=== PATIENT | female | born 1965 | race Caucasian/White ===

== ENCOUNTER 2024-04-10 14:14 | Observation (INO) ==
--- NOTE | 2024-04-10 14:36 | Emergency Department Note ---
Impression & Plan Recurrent falls, Fall down stairs, Slurred speech, Ambulatory dysfunction, Back pain, Incidental pulmonary nodule ED Provider Note HISTORY OF PRESENT ILLNESS: Patient is a 58-year-old female presenting with slurred speech and gait instability after a fall. Patient reports she fell down 13 stairs on a spiral Staircase 2 days ago. Denies loss of consciousness at that time. Reports that she did strike her head, but she did not want to be evaluated. She states that 3 weeks ago she was loading a bag into the back of her car and also hit her head on the trailer and lost consciousness. However, she reports she did not want to be evaluated at that time. She denies any anticoagulation use. Reports over the last 2 weeks she has been having significant gait instability and difficulties getting around. Reports she has had balance issues and feels very unsteady on her feet. Currently complaining of head and neck pain. She reports double and blurry vision. Denies any numbness or tingling or weakness in her extremities. Significant other reports that her speech is significantly slurred, which is abnormal for her. ROS: as above PHYSICAL EXAM: Constitutional: Patient appears in no acute distress. HENT: Head: Normocephalic and atraumatic. Eyes: EOMI, PERRL Mouth/Throat: Mucous membranes moist. Neck: Trachea midline. Neck supple. No midline cervical spine tenderness to palpation. Cardiovascular: RRR, No murmurs, rubs or gallops. Intact distal pulses. Pulmonary/Chest: No respiratory distress. Breath sounds clear and equal bilaterally. No wheezes or rales. No chest wall tenderness to palpation. Abdominal: Abdomen soft, no tenderness, rebound or guarding. Back: No paraspinal tenderness, no CVA tenderness. Patient has lower thoracic and upper lumbar midline tenderness to palpation. No obvious step-offs or deformities. Musculoskeletal: No edema, tenderness or deformity noted. Skin: Warm and dry. Scattered ecchymosis to the bilateral lower extremities. Also noted to have ecchymosis to the left elbow. Psychiatric: Appropriate mood and affect for situation. Neurological: Alert and keenly responsive. CN II-XII grossly intact, moving all extremities spontaneously. Patient does have significantly slurred speech. MDM: - Vitals signs showed tachycardia. - IV access was obtained. Discussed with patient the need for CAT scans. However, she reports she has "anaphylaxis and a horrible reaction to IV contrast." She is refusing to get pretreatment medications and is refusing to get scans with contrast. I did discuss that we could monitor her through this and could give her medications to prevent any of the potential allergic reaction to contrast, but patient is adamant she will not get scans with contrast. Given her trauma and emergent need for scans, CTs without contrast were ordered. - History obtained via patient. History as above. - Chronic conditions affecting care: HTN; HLD; Jerry's thyroiditis - Differential diagnoses include, but are not limited to: CVA; intracranial hemorrhage; traumatic injury; rib fracture; electrolyte abnormality; drug intoxication; alcohol intoxication - Order placed for continuous cardiac monitoring. At this time, monitor showed rate of 70 bpm with normal sinus rhythm, per my interpretation. - External medical records reviewed. [facility] office visit note dated 11/08/2023 was reviewed. Patient follows in the clinic for her routine health maintenance. She had a parotid tumor removed in 2019. - EKG interpreted by myself showed normal sinus rhythm. Rate 69 bpm. QT 392. No acute ischemic changes. - Laboratory workup interpreted by myself showed slight leukopenia (WBC 3.31); stable electrolytes other than slight hypercalcemia (Ca 10.5); negative lactate; normal troponin; negative alcohol - CT head wo contrast negative for acute intracranial pathology - CT cervical/thoracic/lumbar spine wo contrast negative for acute injury. - CT chest/abdomen/pelvis wo contrast negative for acute traumatic injury. Noted to have 6 mm right middle lobe nodule. - UA negative for infection - Viral respiratory panel negative - Patient has significant gait instability, but no other focal neurological deficits other than her slurred speech. However, her symptoms started 2 weeks ago, with the slurred speech worsening in the last 3 days. She is outside of the TNK window if this is a stroke. MRI brain wo contrast ordered. - Discussion was had with rifle case repairer about patient's case and need for admission - Hospitalist consulted for admission - Patient admitted to [facility] for further evaluation and management. ASSESSMENT AND PLAN: Diagnosis: recurrent falls; fall down stairs; slurred speech; ambulatory dysfunction; back pain; incidental pulmonary nodule Plan: admit Past Med/Surg History Problem List (Updated 04/10/24 @ 16:37 by Brenda Finnegan MD) Incidental pulmonary nodule (Acute) Back pain (Acute) Ambulatory dysfunction (Acute) Slurred speech (Acute) Fall down stairs (Acute) Recurrent falls (Acute) Tachycardia Panic attacks Jerry's thyroiditis Anxiety Estrogen excess (Acute) Hypercholesterolemia (Acute) Post concussion syndrome (Acute) Reflex incontinence (Acute) Restless leg syndrome (Acute) Stress incontinence in female (Acute) History of UTI Pelvic pain in female Medical History H/O concussion History of UTI Pelvic pain in female Trigeminal nerve disease Surgical History History of dental surgery History of cholecystectomy History of delivery History of parotid gland removal Family History Sister Alcohol use disorder Brother Alcohol use disorder Mother Depression Father Prostate cancer Other Dyslipidemia Heart disease Hypertension Nephrolithiasis Social History Smoking Status: Never smoker Hx Alcohol Use: No Preferred Language: Slovak marital status: current occupational status: employed current occupation: RN Feels Safe at Home: Yes Allergies Allergies Allergy/AdvReac Type Severity Reaction Status Date / Time Amitriptyline HCl TABS Allergy Unknown Uncoded 03/12/24 09:09 CeleXA TABS Allergy Unknown Uncoded 03/12/24 09:09 Iodinated Contrast Media Allergy Unknown Uncoded 03/12/24 09:09 Lexapro TABS Allergy Unknown Uncoded 03/12/24 09:09 PROzac TABS Allergy Unknown Uncoded 03/12/24 09:09 Requip Allergy Unknown Uncoded 03/12/24 09:09 Shellfish Allergy Unknown Uncoded 03/12/24 09:09 Wellbutrin TABS Allergy Unknown Uncoded 03/12/24 09:09 Zoloft TABS Allergy Unknown Uncoded 03/12/24 09:09 Home Meds Home Medications Medication Instructions Recorded Confirmed Lactobacillus cap PO .TAKE 1 CAPSULE Daily PRN 03/12/24 03/12/24 acidophilus-Bifidobac.animalis 31 billion cell capsule ascorbic acid (vitamin C) 100 mg 2 mg PO .TAKE 2 TABLET Daily PRN 03/12/24 03/12/24 tablet bupropion HCl 100 mg tablet,12 hr mg PO 03/12/24 03/12/24 sustained-release gabapentin 600 mg tablet 1,200 mg PO Q8H 03/12/24 03/12/24 rosuvastatin 10 mg tablet 10 mg PO DAILY 03/12/24 03/12/24 sulfamethoxazole 800 1 tab PO DAILY PRN 03/12/24 mg-trimethoprim 160 mg tablet (Bactrim DS) Results & Data (ED) Vital Signs Vital Signs - 24 hr 04/10/24 14:14 04/10/24 14:20 04/10/24 14:33 Temperature 36.7 C Temperature Source Temporal Artery Scan Pulse Rate 91 H 68 Pulse Rate [Apical] 73 Pulse Rate from SpO2 Sensor Pulse Rhythm [Apical] Pulse Strength [Apical] Respiratory Rate 16 18 18 Respiratory Effort / Characteristics Non-Labored Spontaneous Respiratory Depth Normal Blood Pressure 125/88 Blood Pressure [Left Arm] 119/76 Blood Pressure Mean 100 Blood Pressure Mean [Left Arm] 90 Blood Pressure Position Sitting Blood Pressure Position [Left Arm] Pulse Oximetry 97 93 97 Oxygen Delivery Method Room Air Room Air Sepsis Recent Fever Within 48 Hours No Sepsis New/Unexplained Change in Mental Status No Sepsis Action Taken by Nursing No Action Required 04/10/24 14:54 04/10/24 14:58 04/10/24 15:09 Temperature Temperature Source Pulse Rate 73 68 64 Pulse Rate [Apical] Pulse Rate from SpO2 Sensor 72 63 Pulse Rhythm [Apical] Pulse Strength [Apical] Respiratory Rate 21 17 Respiratory Effort / Characteristics Respiratory Depth Blood Pressure 136/79 136/79 Blood Pressure [Left Arm] Blood Pressure Mean 98 98 Blood Pressure Mean [Left Arm] Blood Pressure Position Blood Pressure Position [Left Arm] Pulse Oximetry 99 98 Oxygen Delivery Method Room Air Room Air Sepsis Recent Fever Within 48 Hours Sepsis New/Unexplained Change in Mental Status Sepsis Action Taken by Nursing 04/10/24 16:17 Temperature Temperature Source Pulse Rate Pulse Rate [Apical] 70 Pulse Rate from SpO2 Sensor Pulse Rhythm [Apical] Regular Pulse Strength [Apical] Normal Respiratory Rate 20 Respiratory Effort / Characteristics Non-Labored Spontaneous Respiratory Depth Normal Blood Pressure Blood Pressure [Left Arm] 105/75 Blood Pressure Mean Blood Pressure Mean [Left Arm] 85 Blood Pressure Position Blood Pressure Position [Left Arm] Sitting Pulse Oximetry 97 Oxygen Delivery Method Room Air Sepsis Recent Fever Within 48 Hours Sepsis New/Unexplained Change in Mental Status Sepsis Action Taken by Nursing Laboratory Data 04/10/24 14:21 04/10/24 14:21 Lab Results 04/10/24 04/10/24 04/10/24 Range/Units 14:21 14:36 15:00 WBC 3.31 L (4.8-10.8) K/ul RBC 4.91 (4.20-5.40) M/uL Hgb 14.9 (12.0-16.0) g/dl POC Hgb 15.6 (12.0-16.0) g/dl Hct 45.1 (37.0-47.0) % POC Hct 46 (37-47) % MCV 91.9 (80.0-100.0) fL MCH 30.3 (25.0-34.0) pg MCHC 33.0 (32.0-36.0) g/dL RDW Std Deviation 43.0 (36.4-46.3) fL RDW Coeff of Jennifer 12.8 (11.5-14.5) % Plt Count 202 (130-400) K/uL MPV 10.7 (9.4-12.4) fL Immature Gran % (Auto) 0.3 % Neut % (Auto) 51.4 % Lymph % (Auto) 33.8 % Blaine % (Auto) 11.5 % Eos % (Auto) 2.1 % Baso % (Auto) 0.9 % Neut # (Auto) 1.70 (1.40-6.50) K/uL Lymph # (Auto) 1.12 L (1.20-3.40) K/uL Blaine # (Auto) 0.38 (0.11-0.59) K/uL Eos # (Auto) 0.07 (0.00-0.50) K/uL Baso # (Auto) 0.03 (0.00-0.20) K/uL Immature Gran # (Auto) 0.01 (0.01-0.20) K/uL PT 10.8 (9.0-12.0) Seconds INR 1.0 (0.9-1.1) POC Sodium 140 (135-144) mmol/L Sodium 139 (136-145) mmol/L POC Potassium 3.8 (3.3-5.0) mmol/L Potassium 3.9 (3.5-5.1) mmol/L POC Chloride 103 (101-112) mmol/L Chloride 102 (98-107) mmol/L Carbon Dioxide 29 (21-32) mmol/L POC Total CO2 27 (24-31) mmol/L Anion Gap 8 (3-11) POC Anion Gap 15.0 L (16-25) mmol/L POC BUN 5 L (7-18) mg/dl BUN 7 (6-23) mg/dl Creatinine 0.89 (0.6-1.2) mg/dl POC Creatinine 0.9 (0.6-1.3) mg/dl Est Cr Clr Drug Dosing 69.6 ml/min Est GFR ( Amer) 83.4 ml/min Est GFR (Non-Af Amer) 71.9 ml/min BUN/Creatinine Ratio 7.9 L (10-20) Glucose 74 (70-99(Fasting)) mg/dl POC Glucose (other) 73 (70-99) mg/dl Lactate 0.8 (0.4-2.0) mmol/L Calcium 10.5 H (8.6-10.3) mg/dl POC Ioniz Calcium Gege 1.21 (1.12-1.32) mmol/l Total Bilirubin 0.9 (0.2-1.0) mg/dl AST 26 (13-39) U/L ALT 16 (7-52) U/L Alkaline Phosphatase 61 (34-104) U/L Ammonia (18-72) umol/L Troponin I High Sens 5.3 (0-14) pg/ml Total Protein 8.6 H (6.0-8.3) gm/dl Albumin 5.3 H (3.4-5.0) gm/dl Globulin 3.3 (2.5-4.0) gm/dl Albumin/Globulin Ratio 1.6 (0.9-2) Urine Color Urine Appearance (Clear) Urine pH (4.5-7.5) Ur Specific [place] (1.000-1.030) Urine Protein (Negative) Urine Glucose (UA) (Negative) Urine Ketones (Negative) Urine Blood (Negative) Urine Nitrite (Negative) Urine Bilirubin (Negative) Urine Urobilinogen (Negative) Ur Leukocyte Esterase (Negative) Urine WBC (Auto) (0-5) /hpf Urine RBC (Auto) (0-2) /hpf U Hyaline Cast (Auto) (0-2) /lpf U Epithel Cells (Auto) (0-2) /hpf Urine Bacteria (Auto) (None Seen) Urine Opiates Screen (Neg) Ur Methadone, Qual (Neg) Urine Fentanyl Screen (Neg) Urine Barbiturates (Neg) Ur Phencyclidine (PCP) (Neg) U Amphetamin/Meth Scrn (Neg) MDMA (Ecstasy) Screen (Neg) U Benzodiazepines Scrn (Neg) Ur Cocaine Metabolite (Neg) U Marijuana (THC) Screen (Neg) Ethyl Alcohol mg/dL < 10.0 (<10.0) mg/dl Adenovirus (PCR) (NotDetected) B. pertussis DNA (PCR) (NotDetected) B.parapertussis DNA PCR (NotDetected) C. pneumoniae DNA (PCR) (NotDetected) Coronavirus OC43 (PCR) (NotDetected) Coronavirus HKU1 (PCR) (NotDetected) Coronavirus 229E (PCR) (NotDetected) SARS-CoV-2 (PCR) (NotDetected) Coronavirus NL63 (PCR) (NotDetected) Human Metapneumovir PCR (NotDetected) Influenza Type A (PCR) (NotDetected) Influenza Type B (PCR) (NotDetected) M. pneumoniae (PCR) (NotDetected) Parainfluenza 1 (PCR) (NotDetected) Parainfluenza 2 (PCR) (NotDetected) Parainfluenza 3 (PCR) (NotDetected) Parainfluenza 4 (PCR) (NotDetected) RSV (PCR) (NotDetected) Entero/Rhino (PCR) (NotDetected) 04/10/24 04/10/24 Range/Units 15:05 15:55 WBC (4.8-10.8) K/ul RBC (4.20-5.40) M/uL Hgb (12.0-16.0) g/dl POC Hgb (12.0-16.0) g/dl Hct (37.0-47.0) % POC Hct (37-47) % MCV (80.0-100.0) fL MCH (25.0-34.0) pg MCHC (32.0-36.0) g/dL RDW Std Deviation (36.4-46.3) fL RDW Coeff of Jennifer (11.5-14.5) % Plt Count (130-400) K/uL MPV (9.4-12.4) fL Immature Gran % (Auto) % Neut % (Auto) % Lymph % (Auto) % Blaine % (Auto) % Eos % (Auto) % Baso % (Auto) % Neut # (Auto) (1.40-6.50) K/uL Lymph # (Auto) (1.20-3.40) K/uL Blaine # (Auto) (0.11-0.59) K/uL Eos # (Auto) (0.00-0.50) K/uL Baso # (Auto) (0.00-0.20) K/uL Immature Gran # (Auto) (0.01-0.20) K/uL PT (9.0-12.0) Seconds INR (0.9-1.1) POC Sodium (135-144) mmol/L Sodium (136-145) mmol/L POC Potassium (3.3-5.0) mmol/L Potassium (3.5-5.1) mmol/L POC Chloride (101-112) mmol/L Chloride (98-107) mmol/L Carbon Dioxide (21-32) mmol/L POC Total CO2 (24-31) mmol/L Anion Gap (3-11) POC Anion Gap (16-25) mmol/L POC BUN (7-18) mg/dl BUN (6-23) mg/dl Creatinine (0.6-1.2) mg/dl POC Creatinine (0.6-1.3) mg/dl Est Cr Clr Drug Dosing ml/min Est GFR ( Amer) ml/min Est GFR (Non-Af Amer) ml/min BUN/Creatinine Ratio (10-20) Glucose (70-99(Fasting)) mg/dl POC Glucose (other) (70-99) mg/dl Lactate (0.4-2.0) mmol/L Calcium (8.6-10.3) mg/dl POC Ioniz Calcium Gege (1.12-1.32) mmol/l Total Bilirubin (0.2-1.0) mg/dl AST (13-39) U/L ALT (7-52) U/L Alkaline Phosphatase (34-104) U/L Ammonia 13.0 L (18-72) umol/L Troponin I High Sens (0-14) pg/ml Total Protein (6.0-8.3) gm/dl Albumin (3.4-5.0) gm/dl Globulin (2.5-4.0) gm/dl Albumin/Globulin Ratio (0.9-2) Urine Color Yellow Urine Appearance Clear (Clear) Urine pH 7.0 (4.5-7.5) Ur Specific [place] 1.006 (1.000-1.030) Urine Protein Negative (Negative) Urine Glucose (UA) Negative (Negative) Urine Ketones 1+ H (Negative) Urine Blood Negative (Negative) Urine Nitrite Negative (Negative) Urine Bilirubin Negative (Negative) Urine Urobilinogen Negative (Negative) Ur Leukocyte Esterase 1+ H (Negative) Urine WBC (Auto) 0-5 (0-5) /hpf Urine RBC (Auto) 0-2 (0-2) /hpf U Hyaline Cast (Auto) 0-2 (0-2) /lpf U Epithel Cells (Auto) 0-2 (0-2) /hpf Urine Bacteria (Auto) None Seen (None Seen) Urine Opiates Screen Neg (Neg) Ur Methadone, Qual Neg (Neg) Urine Fentanyl Screen Neg (Neg) Urine Barbiturates Neg (Neg) Ur Phencyclidine (PCP) Neg (Neg) U Amphetamin/Meth Scrn Pos H (Neg) MDMA (Ecstasy) Screen Neg (Neg) U Benzodiazepines Scrn Neg (Neg) Ur Cocaine Metabolite Neg (Neg) U Marijuana (THC) Screen Pos H (Neg) Ethyl Alcohol mg/dL (<10.0) mg/dl Adenovirus (PCR) Not Detected (NotDetected) B. pertussis DNA (PCR) Not Detected (NotDetected) B.parapertussis DNA PCR Not Detected (NotDetected) C. pneumoniae DNA (PCR) Not Detected (NotDetected) Coronavirus OC43 (PCR) Not Detected (NotDetected) Coronavirus HKU1 (PCR) Not Detected (NotDetected) Coronavirus 229E (PCR) Not Detected (NotDetected) SARS-CoV-2 (PCR) Not Detected (NotDetected) Coronavirus NL63 (PCR) Not Detected (NotDetected) Human Metapneumovir PCR Not Detected (NotDetected) Influenza Type A (PCR) Not Detected (NotDetected) Influenza Type B (PCR) Not Detected (NotDetected) M. pneumoniae (PCR) Not Detected (NotDetected) Parainfluenza 1 (PCR) Not Detected (NotDetected) Parainfluenza 2 (PCR) Not Detected (NotDetected) Parainfluenza 3 (PCR) Not Detected (NotDetected) Parainfluenza 4 (PCR) Not Detected (NotDetected) RSV (PCR) Not Detected (NotDetected) Entero/Rhino (PCR) Not Detected (NotDetected) Administered Medications Sodium Chloride (Nss) 1,000 mls @ 999 mls/hr IV .Q1H1M ONE Stop: 04/10/24 16:44 Last Admin: 04/10/24 15:46 Dose: 999 mls/hr Documented By: CELY Imaging Data Radiologist's Impression: Abdomen/Pelvis CT 04/10/24 14:31 CT abd pelvis wo con CLINICAL HISTORY: fall down stairs TECHNIQUE: Helical axial images of the abdomen and pelvis were obtained. Automated dose lowering techniques and/or adjustment according to patient size were utilized for this exam. This exam was performed without intravenous contrast. CT DOSE: 2308.12 mGy.cm COMPARISON: None available at the time of this dictation. FINDINGS: Lower chest: No acute abnormality. Liver: Unremarkable. No focal lesions are seen. Gallbladder and biliary tree: Patient is status post cholecystectomy. No intra- or extrahepatic biliary ductal dilation. Pancreas: Unremarkable, no focal lesions. Spleen: Unremarkable. Adrenals: Unremarkable. Kidneys and ureters: Nonobstructive nephrolithiasis is seen. Left hypodensities are too small to characterize but favored to represent cysts. Bladder: Unremarkable. Reproductive organs: Unremarkable. Bowel: The appendix is normal. Lymph nodes Retroperitoneal: Unremarkable. Pelvic: Unremarkable. Mesenteric: Unremarkable. Peritoneum: Normal. Vessels: Unremarkable. Abdominal wall: Unremarkable. Bones: Unremarkable. IMPRESSION: No acute abnormalities and in particular no evidence of fracture ACT 112: Negative or not required by law. Electronically signed by: Calos Knutson M.D. 04/10/2024 3:[address] 04/10/24 14:31 CT cervical spine wo con CLINICAL HISTORY: fall down stairs; confusion TECHNIQUE: Multidetector row helical CT of the cervical spine was performed without administration of intravenous contrast. Coronal and sagittal reformations were obtained. Automated dose lowering techniques and/or adjustment according to patient size were utilized for this exam. Comparison: None available at the time of this dictation. FINDINGS: No acute fractures or subluxations are identified. Degenerative changes are seen in the visualized spine. The alignment is normal. Soft tissues are unremarkable. IMPRESSION: Degenerative changes without evidence of acute bony injury. ACT 112: Negative or not required by law. Electronically signed by: Calos Knutson M.D. 04/10/2024 3:[address] 04/10/24 14:31 CT OF THE CHEST WITHOUT IV CONTRAST CLINICAL HISTORY: fall down 13 stairs COMPARISON STUDY: No previous studies for comparison. TECHNIQUE: Axial images of the chest were obtained without IV contrast. Images were reviewed in the axial, sagittal, and coronal planes. IV contrast was not administered for this examination. Automated exposure control was utilized for the study. A dose lowering technique was utilized adhering to the principles of ALARA. FINDINGS: Thoracic aorta is suboptimally assessed on this unenhanced exam but no mediastinal hematoma is identified. The size of the heart is normal. There is no pericardial effusion. No pneumothorax, pleural effusion or pulmonary contusion is present. There is a 6 mm subpleural right middle lobe nodule on image 137 of 273. No acute rib or thoracic spine fractures are identified. The abdomen and pelvis CT will be reported separately. The gallbladder is surgically absent. Bilateral renal calculi are incidentally noted. IMPRESSION: 1. No acute traumatic findings within the chest on unenhanced exam. 2. 6 mm subpleural right middle lobe nodule. This is likely benign. A follow-up chest CT in 6 months to assure studies recommended. ACT 112: Negative or not required by law. Electronically signed by: Abraham Flynn M.D. 04/10/2024 3:[address] 04/10/24 14:31 CT head/brain wo con CLINICAL HISTORY: 58 years-old Female with fall down stairs; slurred speech. Acute head injury status post fall TECHNIQUE: Multiple axial CT images of the head were obtained without contrast. A dose lowering technique was utilized adhering to the principles of ALARA. COMPARISON: CT cervical spine of same day FINDINGS: No acute intracranial hemorrhage, midline shift, intracranial mass, hydrocephalus, territorial ischemia or abnormal extra-axial collection. The calvarium is intact. The paranasal sinuses, mastoid air cells, and middle ear cavities are clear. IMPRESSION: No acute intracranial abnormality or calvarial fracture. ACT 112: Negative or not required by law. The above report was generated using voice recognition software. It may contain grammatical, syntax or spelling errors. Electronically signed by: Lul Scales M.D. 04/10/2024 3:[address] 04/10/24 14:31 CT OF THE LUMBAR SPINE CLINICAL HISTORY: fall down stairs; low back pain COMPARISON STUDY: No previous studies for comparison. TECHNIQUE: Helical axial images of the lumbar spine were obtained. Sagittal and coronal reconstructions were viewed. Automated exposure control was utilized for the study. A dose lowering technique was utilized adhering to the principles of ALARA. FINDINGS: Please note that the abdomen and pelvis CT will be reported separately. Several small bilateral renal calculi are incidentally noted. There is mild leftward curvature of the lumbar spine. No lumbar spine fractures are present. There are no osseous lesions. Sacroiliac joints are intact. Facet joints are intact. There is moderate multilevel facet arthrosis. IMPRESSION: No acute lumbar spine fracture or subluxation. ACT 112: Negative or not required by law. Electronically signed by: Abraham Flynn M.D. 04/10/2024 3:[address] 04/10/24 14:31 CT thoracic spine wo con HISTORY: 58 years-old Female fall down stairs; lower thoracic midline pain acute mid back pain status post fall COMPARISON: CT of the chest, abdomen and pelvis and lumbar spine studies of same day. TECHNIQUE: Multiple axial CT images of the thoracic spine were obtained without IV contrast. A dose lowering technique was used consistent with the principals of ALARA. FINDINGS: CT of the chest is dictated separately. Mild multilevel disc space narrowing, spondylitic spurring and facet arthrosis. No acute fracture, subluxation or endplate erosion. No destructive bone lesions. Suboptimal evaluation of the central canal and neural foramina by CT technique. Bilateral renal calculi. Lung fonseca appear clear. Mild biapical pleural-parenchymal scarring. IMPRESSION: 1. No acute fracture or subluxation of the thoracic spine. 2. Bilateral nephrolithiasis. ACT 112: Negative or not required by law. The above report was generated using voice recognition software. It may contain grammatical, syntax or spelling errors. Electronically signed by: Lul Scales M.D. 04/10/2024 3:30 PM Discharge Plan Visit Data Chief Complaint: Head Injury, Minor Stated Complaint: HIT HEAD, FALL 2 DAYS AGO, SYNCOPE, OFF BALANCE ED Provider: Brenda Finnegan Discharge Problem: Recurrent falls, Fall down stairs, Slurred speech, Ambulatory dysfunction, Back pain, Incidental pulmonary nodule Forms Stand Alone Forms: [facility] Prescriptions Prescriptions: No Action ascorbic acid (vitamin C) 100 mg tablet 2 mg PO .TAKE 2 TABLET Daily PRN gabapentin 600 mg tablet 1,200 mg PO Q8H L. acidophilus/Bifid. animalis 31 billion cell capsule PO .TAKE 1 CAPSULE Daily PRN rosuvastatin 10 mg tablet 10 mg PO DAILY bupropion HCl 100 mg tablet sustained-release 12 hr PO sulfamethoxazole-trimethoprim [Bactrim DS] 800-160 mg tablet 1 tab PO DAILY PRN Referrals Referrals: Camron Escalona DO [Primary Care Provider] -
[2024-04-10 14:48] LABS: iSTAT Creatinine 0.9 mg/dl (0.6-1.3); iSTAT Hemoglobin 15.6 g/dl (12.0-16.0); iSTAT Ionized Calcium 1.21 mmol/l (1.12-1.32); iSTAT Potassium 3.8 mmol/L (3.3-5.0)
[2024-04-10 14:53] LABS: Basophils # (auto) 0.03 K/uL (0.00-0.20); Basophils % (auto) 0.9 %; Eosinophils # (auto) 0.07 K/uL (0.00-0.50); Eosinophils % (auto) 2.1 %; Hematocrit (blood only) 45.1 % (37.0-47.0); Hemoglobin 14.9 g/dl (12.0-16.0); Immature Granulocytes # (auto) 0.01 K/uL (0.01-0.20); Immature Granulocytes % (auto) 0.3 %; Lymphocytes # (auto) 1.12 K/uL (1.20-3.40); Lymphocytes % (auto) 33.8 %; Mean Corpuscular Hemoglobin 30.3 pg (25.0-34.0); Mean Corpuscular Volume 91.9 fL (80.0-100.0); Mean Platelet Volume 10.7 fL (9.4-12.4); Monocytes # (auto) 0.38 K/uL (0.11-0.59); Monocytes % (auto) 11.5 %; Neutrophils % (auto) 51.4 %; Platelet Count 202 K/uL (130-400); RDW Coefficient of Variation 12.8 % (11.5-14.5); Red Blood Count 4.91 M/uL (4.20-5.40); White Blood Count 3.31 K/ul (4.8-10.8)
[2024-04-10 15:08] LABS: Albumin Globulin Ratio 1.6 (0.9-2); Albumin Level 5.3 gm/dl (3.4-5.0); BUN Creatinine Ratio 7.9 (10-20); Bilirubin,Total 0.9 mg/dl (0.2-1.0); Calcium 10.5 mg/dl (8.6-10.3); Creatinine Clr Calc Pharmacy 69.6 ml/min; Est GFR (African American) 83.4 ml/min; Est GFR (Non-African American) 71.9 ml/min; Globulin 3.3 gm/dl (2.5-4.0); Potassium 3.9 mmol/L (3.5-5.1); Total Protein 8.6 gm/dl (6.0-8.3)
--- NOTE | 2024-04-10 15:09 | CT Scan Report ---
CT OF THE CHEST WITHOUT IV CONTRAST CLINICAL HISTORY: fall down 13 stairs COMPARISON STUDY: No previous studies for comparison. TECHNIQUE: Axial images of the chest were obtained without IV contrast. Images were reviewed in the axial, sagittal, and coronal planes. IV contrast was not administered for this examination. Automat ed exposure control was utilized for the study. A dose lowering technique was utilized adhering to t he principles of ALARA. FINDINGS: Thoracic aorta is suboptimally assessed on this unenhanced exam but no mediastinal hematom a is identified. The size of the heart is normal. There is no pericardial effusion. No pneumothorax, pleural effusion or pulmonary contusion is present. There is a 6 mm subpleural right middle lobe nodu le on image 137 of 273. No acute rib or thoracic spine fractures are identified. The abdomen and pelv is CT will be reported separately. The gallbladder is surgically absent. Bilateral renal calculi are incidentally noted. IMPRESSION: 1. No acute traumatic findings within the chest on unenhanced exam. 2. 6 mm subpleural right middle lobe nodule. This is likely benign. A follow-up chest CT in 6 months to assure studies recommended. ACT 112: Negative or not required by law. Electronically signed by: Abraham Flynn M.D. 04/10/2024 3:08 PM
--- NOTE | 2024-04-10 15:11 | CT Scan Report ---
CT OF THE LUMBAR SPINE CLINICAL HISTORY: fall down stairs; low back pain COMPARISON STUDY: No previous studies for comparison. TECHNIQUE: Helical axial images of the lumbar spine were obtained. Sagittal and coronal reconstruct ions were viewed. Automated exposure control was utilized for the study. A dose lowering technique was utilized adhering to the principles of ALARA. FINDINGS: Please note that the abdomen and pelvis CT will be reported separately. Several small bilat eral renal calculi are incidentally noted. There is mild leftward curvature of the lumbar spine. No l umbar spine fractures are present. There are no osseous lesions. Sacroiliac joints are intact. Facet joints are intact. There is moderate multilevel facet arthrosis. IMPRESSION: No acute lumbar spine fracture or subluxation. ACT 112: Negative or not required by law. Electronically signed by: Abraham Flynn M.D. 04/10/2024 3:10 PM
[2024-04-10 15:14] LABS: Troponin I High Sensitivity 5.3 pg/ml (0-14)
--- NOTE | 2024-04-10 15:18 | CT Scan Report ---
CT head/brain wo con CLINICAL HISTORY: 58 years-old Female with fall down stairs; slurred speech. Acute head injury statu s post fall TECHNIQUE: Multiple axial CT images of the head were obtained without contrast. A dose lowering tech nique was utilized adhering to the principles of ALARA. COMPARISON: CT cervical spine of same day FINDINGS: No acute intracranial hemorrhage, midline shift, intracranial mass, hydrocephalus, territorial ischem ia or abnormal extra-axial collection. The calvarium is intact. The paranasal sinuses, mastoid air cells, and middle ear cavities are clear . IMPRESSION: No acute intracranial abnormality or calvarial fracture. ACT 112: Negative or not required by law. The above report was generated using voice recognition software. It may contain grammatical, syntax o r spelling errors. Electronically signed by: Lul Scales M.D. 04/10/2024 3:16 PM
[2024-04-10 15:20] LABS: Prothrombin Time 10.8 Seconds (9.0-12.0)
--- NOTE | 2024-04-10 15:31 | CT Scan Report ---
CT thoracic spine wo con HISTORY: 58 years-old Female fall down stairs; lower thoracic midline pain acute mid back pain statu s post fall COMPARISON: CT of the chest, abdomen and pelvis and lumbar spine studies of same day. TECHNIQUE: Multiple axial CT images of the thoracic spine were obtained without IV contrast. A dose l owering technique was used consistent with the principals of APRYL. FINDINGS: CT of the chest is dictated separately. Mild multilevel disc space narrowing, spondylitic spurring an d facet arthrosis. No acute fracture, subluxation or endplate erosion. No destructive bone lesions. S uboptimal evaluation of the central canal and neural foramina by CT technique. Bilateral renal calcul i. Lung fonseca appear clear. Mild biapical pleural-parenchymal scarring. IMPRESSION: 1. No acute fracture or subluxation of the thoracic spine. 2. Bilateral nephrolithiasis. ACT 112: Negative or not required by law. The above report was generated using voice recognition software. It may contain grammatical, syntax o r spelling errors. Electronically signed by: Lul Scales M.D. 04/10/2024 3:30 PM
--- NOTE | 2024-04-10 15:39 | CT Scan Report ---
CT cervical spine wo con CLINICAL HISTORY: fall down stairs; confusion TECHNIQUE: Multidetector row helical CT of the cervical spine was performed without administration of intravenous contrast. Coronal and sagittal reformations were obtained. Automated dose lowering techn iques and/or adjustment according to patient size were utilized for this exam. Comparison: None available at the time of this dictation. FINDINGS: No acute fractures or subluxations are identified. Degenerative changes are seen in the visualized sp ine. The alignment is normal. Soft tissues are unremarkable. IMPRESSION: Degenerative changes without evidence of acute bony injury. ACT 112: Negative or not required by law. Electronically signed by: Calos Knutson M.D. 04/10/2024 3:38 PM
--- NOTE | 2024-04-10 15:41 | CT Scan Report ---
CT abd pelvis wo con CLINICAL HISTORY: fall down stairs TECHNIQUE: Helical axial images of the abdomen and pelvis were obtained. Automated dose lowering tech niques and/or adjustment according to patient size were utilized for this exam. This exam was perfor med without intravenous contrast. CT DOSE: 2308.12 mGy.cm COMPARISON: None available at the time of this dictation. FINDINGS: Lower chest: No acute abnormality. Liver: Unremarkable. No focal lesions are seen. Gallbladder and biliary tree: Patient is status post cholecystectomy. No intra- or extrahepatic bilia ry ductal dilation. Pancreas: Unremarkable, no focal lesions. Spleen: Unremarkable. Adrenals: Unremarkable. Kidneys and ureters: Nonobstructive nephrolithiasis is seen. Left hypodensities are too small to samm acterize but favored to represent cysts. Bladder: Unremarkable. Reproductive organs: Unremarkable. Bowel: The appendix is normal. Lymph nodes Retroperitoneal: Unremarkable. Pelvic: Unremarkable. Mesenteric: Unremarkable. Peritoneum: Normal. Vessels: Unremarkable. Abdominal wall: Unremarkable. Bones: Unremarkable. IMPRESSION: No acute abnormalities and in particular no evidence of fracture ACT 112: Negative or not required by law. Electronically signed by: Calos Knutson M.D. 04/10/2024 3:40 PM
[2024-04-10] MEDS: SODIUM CHLORIDE 0.9% 1,000 ML IV ONE (15:46)
[2024-04-10 16:01] LABS: Adenovirus PCR Not Detected (NotDetected); Bordetella parapertussis PCR Not Detected (NotDetected); Bordetella pertussis PCR Not Detected (NotDetected); Chlamydia pneumoniae PCR Not Detected (NotDetected); Coronavirus 229E PCR Not Detected (NotDetected); Coronavirus CoV-2 (COVID19)PCR Not Detected (NotDetected); Coronavirus HKU1 PCR Not Detected (NotDetected); Coronavirus NL63 PCR Not Detected (NotDetected); Coronavirus OC43PCR Not Detected (NotDetected); Human Metapneumovirus PCR Not Detected (NotDetected); Influenza A PCR Not Detected (NotDetected); Influenza B PCR Not Detected (NotDetected); Mycoplasma pneumoniae PCR Not Detected (NotDetected); Parainfluenza Virus 1 PCR Not Detected (NotDetected); Parainfluenza Virus 2 PCR Not Detected (NotDetected); Parainfluenza Virus 3 PCR Not Detected (NotDetected); Parainfluenza Virus 4 PCR Not Detected (NotDetected); Respiratory Syncytial VirusPCR Not Detected (NotDetected); Rhinovirus/Enterovirus PCR Not Detected (NotDetected)
[2024-04-10 16:09] LABS: Appearance Urine Clear (Clear); Bacteria Urine Automated None Seen (None Seen); Bilirubin Urine Negative (Negative); Blood Urine Negative (Negative); Cast Urine Automated 0-2 /lpf (0-2); Color Urine Yellow; Epithelial Cell Urine Auto 0-2 /hpf (0-2); Glucose Urine UA Negative (Negative); Ketones Urine 1+ (Negative); Leukocyte Esterase Urine 1+ (Negative); Nitrite Urine Negative (Negative); Protein Urine Negative (Negative); RBC Urine Automated 0-2 /hpf (0-2); Specific Gravity Urine 1.006 (1.000-1.030); Urobilinogen Urine Negative (Negative); WBC Urine Automated 0-5 /hpf (0-5)
[2024-04-10 16:37] LABS: Amphetamines+Metham, Urine Pos (Neg); Barbiturates, Urine Neg (Neg); Benzodiazepine, Urine Neg (Neg); Cocaine, Urine Neg (Neg); Fentanyl, Urine Neg (Neg); MDMA (Ecstacy), Urine Neg (Neg); Marijuana, Urine Pos (Neg); Methadone, Urine Neg (Neg); Opiate, Urine Neg (Neg); Phencyclidine, Urine Neg (Neg)
--- NOTE | 2024-04-10 16:44 | History & Physical Report ---
Date of Service April 10, 2024 Assessment & Plan (1) Stroke-like symptoms: Plan: Slurred speech, ambulatory dysfunction - acute on chronic ?CVA +/- CIDP +/- concussion +/- anxiety +/- alternative neurological diagnosis MRI brain If brain MRI shows stroke will complete full CVA workup If brain MRI normal will consider neurology consult Consider reduction of lorazepam +/- gabapentin - suggest one at a time Will defer lumbar puncture pending neurology consult - no focal neurology to suggest urgent need for this, suspect a better course of action would be outpatient nerve conduction studies prior to this PT/OT to determine safety on returning home vs. inpatient rehabilitation (2) Slurred speech: (3) Ambulatory dysfunction: (4) Anxiety: (5) Restless leg syndrome: Plan: Continue gabapentin - discussed possible reducing this given her difficult balance but recommend this is done more on an outpaitent basis (6) Abnormal CT scan, chest: Plan: Incidental right pulmonary nodule, recommend repeat CT in approximately 6 months Plan VTE Prophylaxis - Lovenox Diet - regular Disposition - admit to med/surg Admission and Anticipated Discharge Date Admission Date: April 10, 2024 History of Present Illness Chief Complaint: Slurred speech and decreased balance Primary Care Provider: Camron Escalona DO 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 Difficult to get a good timeline from the patient as she reports her symptoms have been ongoing both for years (as also detailed by prior neurology notes) but also much worse over the last few weeks. She reports seeing Dr Montenegro prior for these symptoms and being dismissed but no record found in the current [facility] therefore presumably this was many years ago. Her symptoms appear to have progressed related to recent falls with hitting her head and loss of consciousness and has an appointment to follow up with concussion clinic in [place]. This was both about a month ago and then again 2 days ago. No one sided weakness. No numbness tingling in extremities. She is having a headache. She reports many of her problems started after her parotid gland surgery with taste and appetite affected, balance problems since then with no history of stroke. Psychiatry note from 2019 reports improvement of mood on Cymbalta but worsening restless leg. Multiple SSRI/NRI allergies listed. Allergies Allergy/AdvReac Type Severity Reaction Status Date / Time Amitriptyline HCl TABS Allergy Unknown Uncoded 03/12/24 09:09 CeleXA TABS Allergy Unknown Uncoded 03/12/24 09:09 Iodinated Contrast Media Allergy Unknown Uncoded 03/12/24 09:09 Lexapro TABS Allergy Unknown Uncoded 03/12/24 09:09 PROzac TABS Allergy Unknown Uncoded 03/12/24 09:09 Requip Allergy Unknown Uncoded 03/12/24 09:09 Shellfish Allergy Unknown Uncoded 03/12/24 09:09 Wellbutrin TABS Allergy Unknown Uncoded 03/12/24 09:09 Zoloft TABS Allergy Unknown Uncoded 03/12/24 09:09 Home Medications Medication Instructions Recorded Confirmed Type Lactobacillus 1 cap PO DAILY 03/12/24 04/10/24 History acidophilus-Bifidobac.animalis 31 billion cell capsule ascorbic acid (vitamin C) 100 mg 1,000 mg PO DAILY 03/12/24 04/10/24 History tablet bupropion HCl 100 mg tablet,12 hr 100 mg PO BID 03/12/24 04/10/24 History sustained-release gabapentin 600 mg tablet 1,200 mg PO Q12H 03/12/24 04/10/24 History rosuvastatin 10 mg tablet 10 mg PO DAILY 03/12/24 04/10/24 History sulfamethoxazole 800 1 tab PO DAILY PRN Unknown 03/12/24 04/10/24 History mg-trimethoprim 160 mg tablet (Bactrim DS) clonazepam 1 mg tablet 1 mg PO BID 04/10/24 04/10/24 History dextroamphetamine-amphetamine ER 30 mg PO DAILY 04/10/24 04/10/24 History 30 mg 24hr capsule,extend release lidocaine HCl 2 % mucosal solution See Rx Instructions .Route 04/10/24 04/10/24 History .COMPLEX PRN irritation nystatin 100,000 unit/mL oral 5 ml PO QID PRN irritation 04/10/24 04/10/24 History suspension Past Med/Surg History Problem List (Updated 04/25/24 @ 09:58 by Hugo Guaman MD) Abnormal CT scan, chest Stroke-like symptoms Incidental pulmonary nodule (Acute) Back pain (Acute) Ambulatory dysfunction (Acute) Slurred speech (Acute) Fall down stairs (Acute) Recurrent falls (Acute) Tachycardia Panic attacks Jerry's thyroiditis Anxiety Estrogen excess (Acute) Hypercholesterolemia (Acute) Post concussion syndrome (Acute) Reflex incontinence (Acute) Restless leg syndrome (Acute) Stress incontinence in female (Acute) History of UTI Pelvic pain in female Medical History H/O concussion History of UTI Pelvic pain in female Trigeminal nerve disease Surgical History History of dental surgery History of cholecystectomy History of delivery History of parotid gland removal Family History Sister Alcohol use disorder Brother Alcohol use disorder Mother Depression Father Prostate cancer Other Dyslipidemia Heart disease Hypertension Nephrolithiasis Social History Smoking Status: Never smoker Hx Alcohol Use: No Preferred Language: Bruneian marital status: current occupational status: employed current occupation: RN Feels Safe at Home: Yes Review of Systems Review of Systems: All systems reviewed & are unremarkable except as noted in HPI & below Physical Exam Constitutional: WD/WN, vitals as above Eyes: PERRL, conjunctivae normal, anicteric sclerae ENMT: external ear and nose normal, oropharynx normal Respiratory: normal respiratory effort, lungs clear to auscultation Cardiovascular: RRR, no murmur, no edema Gastrointestinal (Abdomen): normal bowel sounds, soft, nontender, no hepatosplenomegaly Musculoskeletal: no cyanosis or clubbing, extremities motor strength 5/5 Skin: no rashes, warm and dry Neurologic: CN's II-XI intact bilaterally, deep tendon reflexes 2+ bilaterally, moves all extremities and awake; no focal motor deficits and not confused Speech / Cognition: + abnormal speech (slurred per at bedside) Psychiatric: Orientation: alert and oriented x 3 Eye Contact: + fair eye contact Speech: normal rate/rhythm/volume of speech Affect: + labile affect Results & Data Results & Data Vital Signs (Past 12 Hours) Vital Signs Temp Pulse Pulse Resp BP BP Pulse Ox 04/10/24 16:17 70 20 105/75 97 04/10/24 15:09 64 17 136/79 98 04/10/24 14:58 68 04/10/24 14:54 73 21 136/79 99 04/10/24 14:33 68 18 97 06/13/24 14:20 36.7 C 91 H 18 125/88 93 04/10/24 14:14 73 16 119/76 97 O2 Del Method 04/10/24 16:17 Room Air 04/10/24 15:09 Room Air 04/10/24 14:58 04/10/24 14:54 Room Air 04/10/24 14:33 Room Air 04/10/24 14:20 Room Air 04/10/24 14:14 Laboratory Results Abnormal lab results 04/10/24 04/10/24 04/10/24 Range/Units 14:21 14:36 15:05 WBC 3.31 L (4.8-10.8) K/ul Lymph # (Auto) 1.12 L (1.20-3.40) K/uL POC Anion Gap 15.0 L (16-25) mmol/L POC BUN 5 L (7-18) mg/dl BUN/Creatinine Ratio 7.9 L (10-20) Calcium 10.5 H (8.6-10.3) mg/dl Ammonia 13.0 L (18-72) umol/L Total Protein 8.6 H (6.0-8.3) gm/dl Albumin 5.3 H (3.4-5.0) gm/dl Urine Ketones (Negative) Ur Leukocyte Esterase (Negative) 04/10/24 Range/Units 15:55 WBC (4.8-10.8) K/ul Lymph # (Auto) (1.20-3.40) K/uL POC Anion Gap (16-25) mmol/L POC BUN (7-18) mg/dl BUN/Creatinine Ratio (10-20) Calcium (8.6-10.3) mg/dl Ammonia (18-72) umol/L Total Protein (6.0-8.3) gm/dl Albumin (3.4-5.0) gm/dl Urine Ketones 1+ H (Negative) Ur Leukocyte Esterase 1+ H (Negative) Diagnostic Findings CT head/brain wo con CLINICAL HISTORY: 58 years-old Female with fall down stairs; slurred speech. Acute head injury status post fall TECHNIQUE: Multiple axial CT images of the head were obtained without contrast. A dose lowering technique was utilized adhering to the principles of ALARA. COMPARISON: CT cervical spine of same day FINDINGS: No acute intracranial hemorrhage, midline shift, intracranial mass, hydrocephalus, territorial ischemia or abnormal extra-axial collection. The calvarium is intact. The paranasal sinuses, mastoid air cells, and middle ear cavities are clear. IMPRESSION: No acute intracranial abnormality or calvarial fracture. CT cervical spine wo con CLINICAL HISTORY: fall down stairs; confusion TECHNIQUE: Multidetector row helical CT of the cervical spine was performed without administration of intravenous contrast. Coronal and sagittal reformations were obtained. Automated dose lowering techniques and/or adjustment according to patient size were utilized for this exam. Comparison: None available at the time of this dictation. FINDINGS: No acute fractures or subluxations are identified. Degenerative changes are seen in the visualized spine. The alignment is normal. Soft tissues are unremarkable. IMPRESSION: Degenerative changes without evidence of acute bony injury. CT thoracic spine wo con HISTORY: 58 years-old Female fall down stairs; lower thoracic midline pain acute mid back pain status post fall COMPARISON: CT of the chest, abdomen and pelvis and lumbar spine studies of same day. TECHNIQUE: Multiple axial CT images of the thoracic spine were obtained without IV contrast. A dose lowering technique was used consistent with the principals of ALARA. FINDINGS: CT of the chest is dictated separately. Mild multilevel disc space narrowing, spondylitic spurring and facet arthrosis. No acute fracture, subluxation or endplate erosion. No destructive bone lesions. Suboptimal evaluation of the central canal and neural foramina by CT technique. Bilateral renal calculi. Lung fonseca appear clear. Mild biapical pleural-parenchymal scarring. IMPRESSION: 1. No acute fracture or subluxation of the thoracic spine. 2. Bilateral nephrolithiasis. CT OF THE LUMBAR SPINE CLINICAL HISTORY: fall down stairs; low back pain COMPARISON STUDY: No previous studies for comparison. TECHNIQUE: Helical axial images of the lumbar spine were obtained. Sagittal and coronal reconstructions were viewed. Automated exposure control was utilized for the study. A dose lowering technique was utilized adhering to the principles of ALARA. FINDINGS: Please note that the abdomen and pelvis CT will be reported separately. Several small bilateral renal calculi are incidentally noted. There is mild leftward curvature of the lumbar spine. No lumbar spine fractures are present. There are no osseous lesions. Sacroiliac joints are intact. Facet joints are intact. There is moderate multilevel facet arthrosis. IMPRESSION: No acute lumbar spine fracture or subluxation. CT OF THE CHEST WITHOUT IV CONTRAST CLINICAL HISTORY: fall down 13 stairs COMPARISON STUDY: No previous studies for comparison. TECHNIQUE: Axial images of the chest were obtained without IV contrast. Images were reviewed in the axial, sagittal, and coronal planes. IV contrast was not administered for this examination. Automated exposure control was utilized for the study. A dose lowering technique was utilized adhering to the principles of ALARA. FINDINGS: Thoracic aorta is suboptimally assessed on this unenhanced exam but no mediastinal hematoma is identified. The size of the heart is normal. There is no pericardial effusion. No pneumothorax, pleural effusion or pulmonary contusion is present. There is a 6 mm subpleural right middle lobe nodule on image 137 of 273. No acute rib or thoracic spine fractures are identified. The abdomen and pelvis CT will be reported separately. The gallbladder is surgically absent. Bilateral renal calculi are incidentally noted. IMPRESSION: 1. No acute traumatic findings within the chest on unenhanced exam. 2. 6 mm subpleural right middle lobe nodule. This is likely benign. A follow-up chest CT in 6 months to assure studies recommended. CT abd pelvis wo con CLINICAL HISTORY: fall down stairs TECHNIQUE: Helical axial images of the abdomen and pelvis were obtained. Automated dose lowering techniques and/or adjustment according to patient size were utilized for this exam. This exam was performed without intravenous contrast. CT DOSE: 2308.12 mGy.cm COMPARISON: None available at the time of this dictation. FINDINGS: Lower chest: No acute abnormality. Liver: Unremarkable. No focal lesions are seen. Gallbladder and biliary tree: Patient is status post cholecystectomy. No intra- or extrahepatic biliary ductal dilation. Pancreas: Unremarkable, no focal lesions. Spleen: Unremarkable. Adrenals: Unremarkable. Kidneys and ureters: Nonobstructive nephrolithiasis is seen. Left hypodensities are too small to characterize but favored to represent cysts. Bladder: Unremarkable. Reproductive organs: Unremarkable. Bowel: The appendix is normal. Lymph nodes Retroperitoneal: Unremarkable. Pelvic: Unremarkable. Mesenteric: Unremarkable. Peritoneum: Normal. Vessels: Unremarkable. Abdominal wall: Unremarkable. Bones: Unremarkable. IMPRESSION: No acute abnormalities and in particular no evidence of fracture Medications Administered ER Medications Given: Normal saline 1L bolus ECG Rate (beats per minute): 69 Rhythm: normal sinus Findings: no acute ischemic change Comparison ECG Date: no prior available Code Status & VTE Plan Code Status Full PG Care Time/CCT Total # of Minutes Spent Total Time Spent with Patient: Total time spent is greater than 50% in coordination of care (as documented) at patient's floor/unit and/or counseling patient: Coding Level of Care Code 40192 INT INP/OBS CARE 3/75MIN Diagnoses Stroke-like symptoms R29.90 Slurred speech R47.81 Ambulatory dysfunction R26.2 Anxiety F41.9 Restless leg syndrome G25.[address] scan, chest R93.89
[2024-04-10 17:50] LABS: Thyroid Stimulating Hormone 1.208 uIu/ml (0.300-4.500)
--- NOTE | 2024-04-10 17:50 | Electrocardiogram Report ---
Test Reason : Blood Pressure : / mmHG Vent. Rate : 069 BPM Atrial Rate : 069 BPM P-R Int : 130 ms QRS Dur : 064 ms QT Int : 392 ms P-R-T Axes : 063 064 086 degrees QTc Int : 420 ms Normal sinus rhythm Normal ECG No previous ECGs available Confirmed by Mark Guerra ([id number]) on 04/10/2024 5:49:53 PM Referred By: Camron Escalona Confirmed By:Yuri Guerra
--- NOTE | 2024-04-10 18:20 | Magnetic Resonance Report ---
MR brain wo con HISTORY: 58 years-old Female slurred speech acute stroke like symptoms COMPARISON: Brain MRI 02/28/2019, head CT 04/10/2014 TECHNIQUE: Multiplanar multisequence MRI of the brain was obtained without IV contrast. FINDINGS: There is no restricted diffusion. Midline structures are unremarkable. There are suggested postoperat tommy changes in the left parotid gland. No acute intracranial hemorrhage, midline shift, abnormal extr a axial collection, hydrocephalus or intra-axial mass. No pathologic blooming artifact. Motion degrad ed exam. The brain volume and signal characteristics are within normal limits for the patient's age. Cerebral venous sinuses and major arterial flow voids appear patent. Skull, orbits and soft tissues a re unremarkable. Trace mastoid effusions. Mild mucosal thickening of the paranasal sinuses appear IMPRESSION: No acute intracranial abnormality. No acute or subacute infarct. ACT 112: Negative or not required by law. The above report was generated using voice recognition software. It may contain grammatical, syntax o r spelling errors. Electronically signed by: Lul Scales M.D. 04/10/2024 6:17 PM
[2024-04-14 10:41] LABS: Amphetamine Urine, Confirm 2590 ng/mL (<250); Marijuana Quant, GCMS Urine 1602 ng/mL (<5); Methamphetamine, Ur Confirm NEGATIVE ng/mL (<250)
--- NOTE | 2024-04-25 10:10 | Discharge Summary ---
Discharge Summary Date of Service April 10, 2024 Principal Dx & Hospital Course #1 = Principal Diagnosis (1) Stroke-like symptoms: Mary Griffin is a 58 year old female who presented to the ER with ambulatory dysfunction and slurred speech following recent falls with loss of consciousness. Brain MRI showed no acute or subacute stroke. Following this she became very anxious and wished to leave against medical advice. Discussed staying for neurological evaluation with Dr Montenegro tomorrow however she has not got a long with Dr Montenegro in the past therefore this enforced her decision to leave against medical advice. Discussed concern of her ongoing falls and need for PT/OT evaluations for possible inpatient rehabilitation - she declined this and just wished to go home and could understand the risks of discharge. She was therefore discharged against medical advice shortly after admission. (2) Slurred speech: (3) Ambulatory dysfunction: (4) Anxiety: (5) Restless leg syndrome: (6) Abnormal CT scan, chest: Notes For Next Care Provider Follow up with concussion clinic as previously arranged Consider referral to neurology +/- neuropsychiatry if not previously done to consider outpatient nerve conduction studies Follow up with PCP for unexplained symptoms Consider repeat CT chest in 6 months if no other imaging to suggest stability in incidental 6mm subpleural right middle lobe nodule Medication Changes From Visit None - patient left against medical advice. 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 Difficult to get a good timeline from the patient as she reports her symptoms have been ongoing both for years (as also detailed by prior neurology notes) but also much worse over the last few weeks. She reports seeing Dr Montenegro prior for these symptoms and being dismissed but no record found in the current [facility] therefore presumably this was many years ago. Her symptoms appear to have progressed related to recent falls with hitting her head and loss of consciousness and has an appointment to follow up with concussion clinic in [place]. This was both about a month ago and then again 2 days ago. No one sided weakness. No numbness tingling in extremities. She is having a headache. She reports many of her problems started after her parotid gland surgery with taste and appetite affected, balance problems since then with no history of stroke. Psychiatry note from 2019 reports improvement of mood on Cymbalta but worsening restless leg. Multiple SSRI/NRI allergies listed. Discharge Exam Constitutional WD/WN, vitals as above Eyes PERRL, conjunctivae normal, anicteric sclerae ENMT external ear and nose normal, oropharynx normal Respiratory normal respiratory effort, lungs clear to auscultation Cardiovascular RRR, no murmur, no edema Gastrointestinal (Abdomen) normal bowel sounds, soft, nontender, no hepatosplenomegaly Musculoskeletal no cyanosis or clubbing, extremities motor strength 5/5 Skin no rashes, warm and dry Neurologic CN's II-XI intact bilaterally, deep tendon reflexes 2+ bilaterally, moves all extremities and awake; no focal motor deficits and not confused Speech / Cognition: + abnormal speech (slurred per at bedside) Psychiatric Orientation: alert and oriented x 3 Eye Contact: + fair eye contact Speech: normal rate/rhythm/volume of speech Affect: + labile affect Updated Medication List Medication Instructions Recorded Confirmed Type Lactobacillus 1 cap PO DAILY 03/12/24 04/10/24 History acidophilus-Bifidobac.animalis 31 billion cell capsule ascorbic acid (vitamin C) 100 mg 1,000 mg PO DAILY 03/12/24 04/10/24 History tablet bupropion HCl 100 mg tablet,12 hr 100 mg PO BID 03/12/24 04/10/24 History sustained-release gabapentin 600 mg tablet 1,200 mg PO Q12H 03/12/24 04/10/24 History rosuvastatin 10 mg tablet 10 mg PO DAILY 03/12/24 04/10/24 History sulfamethoxazole 800 1 tab PO DAILY PRN Unknown 03/12/24 04/10/24 History mg-trimethoprim 160 mg tablet (Bactrim DS) clonazepam 1 mg tablet 1 mg PO BID 04/10/24 04/10/24 History dextroamphetamine-amphetamine ER 30 mg PO DAILY 04/10/24 04/10/24 History 30 mg 24hr capsule,extend release lidocaine HCl 2 % mucosal solution See Rx Instructions .Route 04/10/24 04/10/24 History .COMPLEX PRN irritation nystatin 100,000 unit/mL oral 5 ml PO QID PRN irritation 04/10/24 04/10/24 History suspension Hospital Stay Data Consultations 04/10/24 16:32 ED Decision to Admit Stat Diagnostic Imagining Performed 04/10/24 14:31 CT Abdomen and Pelvis [CT abd pelvis wo con] Stat IMPRESSION: No acute abnormalities and in particular no evidence of fracture CT cervical spine wo con Stat IMPRESSION: Degenerative changes without evidence of acute bony injury. CT chest without contrast [CT chest diagnostic wo con] Stat IMPRESSION: 1. No acute traumatic findings within the chest on unenhanced exam. 2. 6 mm subpleural right middle lobe nodule. This is likely benign. A follow-up chest CT in 6 months to assure studies recommended. CT head/brain wo con Stat IMPRESSION: No acute intracranial abnormality or calvarial fracture. CT lumbar spine wo con Stat IMPRESSION: No acute lumbar spine fracture or subluxation. CT thoracic spine wo con Stat IMPRESSION: 1. No acute fracture or subluxation of the thoracic spine. 2. Bilateral nephrolithiasis. 04/10/24 16:30 MRI Brain [MR brain wo con] Stat IMPRESSION: No acute intracranial abnormality. No acute or subacute infarct. Pending Results Patient Have Any Pending Studies at Discharge: No Discharge Instructions Given to Patient (Per Discharging Provider) Total Time Total Time Spent Total Time Spent (In Minutes): 20 Coding Level of Care Code None Diagnoses Stroke-like symptoms R29.90 Slurred speech R47.81 Ambulatory dysfunction R26.2 Anxiety F41.9 Restless leg syndrome G25.[address] scan, chest R93.89
== END 2024-04-10 20:32 | disposition left against medical advice (07) ==
LOC: EDINP 14:14 → ED 14:14 → EDINP 19:47